=== PATIENT | female | born 1955 | race Caucasian/White ===

== ENCOUNTER 2017-09-01 11:34 | Emergency (ER) | payer OTHER ==
[2017-09-01 11:36] VITALS: BP 197/86; PULSE 68; RESP 14; TEMP 98.4; O2SAT 96
--- NOTE | 2017-09-01 12:00 | RADRPT ---
EXAM DATE/TIME: 09/01/2017 11:57 [place] COMPARISON: No previous studies available for comparison. INDICATIONS : Chest pain for 3 days. MEDICAL HISTORY : None. SURGICAL HISTORY : None. ENCOUNTER: Initial ACUITY: 3 days PAIN SCORE: 7/10 LOCATION: Bilateral lower chest FINDINGS: PA and lateral views of the chest demonstrate the lungs to be symmetrically aerated without evidence of mass, infiltrate or effusion. The cardiomediastinal contours are unremarkable. Osseous structure s are intact. CONCLUSION: No acute cardiopulmonary disease. Roger Watters MD on September 01, 2017 at 11:57 Board Certified Radiologist. This report was verified electronically.
[2017-09-01 12:22] LABS: BILIRUBIN, URINE NEG (NEG); BLOOD, URINE NEG (NEG); GLUCOSE,URINE NEG (NEG); KETONE, URINE NEG (NEG); MUCUS URINE MANY /lpf (OCC); NITRITE,URINE NEG (NEG); PH, URINE 5.5 (5.0-8.5); SQUAMOUS EPITHELIAL CELL URINE 2 /hpf (0-5); URINE COLOR YELLOW (YELLW/STRAW); URINE LEUKOCYTE ESTERASE MOD (NEG)
[2017-09-01 12:23] LABS: AUTOMATED NEUTROPHIL # 3.9 TH/MM3 (1.8-7.7); BASOPHIL % 0.7 % (0.0-2.0); EOSINOPHIL # 0.1 TH/MM3 (0-0.4); EOSINOPHIL % 2.3 % (0.0-4.0); HEMATOCRIT 41.5 % (35.0-46.0); HEMOGLOBIN 14.2 GM/DL (11.6-15.3); LYMPH % 28.5 % (9.0-44.0); LYMPHOCYTE # 1.8 TH/MM3 (1.0-4.8); MEAN CELL VOLUME 89.6 FL (80.0-100.0); MEAN CORPUSCULAR HEMOGLOBIN 30.8 PG (27.0-34.0); MEAN CORPUSCULAR HGB CONC 34.4 % (32.0-36.0); MEAN PLATELET VOLUME 8.5 FL (7.0-11.0); MONO % 6.4 % (0.0-8.0); MONOCYTE # 0.4 TH/MM3 (0-0.9); NEUT % 62.1 % (16.0-70.0); PLATELET COUNT 195 TH/MM3 (150-450); RED BLOOD COUNT 4.62 MIL/MM3 (4.00-5.30); RED CELL DISTRIBUTION WIDTH 13.7 % (11.6-17.2); WHITE BLOOD COUNT 6.2 TH/MM3 (4.0-11.0)
[2017-09-01 12:42] LABS: ALBUMIN 4.1 GM/DL (3.4-5.0); AST (GOT) 31 U/L (15-37); BICARBONATE 28.4 MEQ/L (21.0-32.0); BLOOD UREA NITROGEN 17 MG/DL (7-18); CHLORIDE 106 MEQ/L (98-107); CREATININE 0.73 MG/DL (0.50-1.00); GLOMERULAR FILTRATION RATE 81 ML/MIN (>89); GLUCOSE,RANDOM 97 MG/DL (74-106); SODIUM (NA) 140 MEQ/L (136-145)
[2017-09-01 12:45] LABS: ALKALINE PHOSPHATASE 70 U/L (45-117); ALT (GPT) 52 U/L (10-53); TOTAL BILIRUBIN ADULT 0.6 MG/DL (0.2-1.0); TOTAL PROTEIN 8.2 GM/DL (6.4-8.2)
[2017-09-01 12:53] VITALS: BP 135/67; PULSE 65; RESP 18; O2SAT 97
--- NOTE | 2017-09-01 13:09 | PD ---
HPI Chief Complaint: Abdominal Pain Time Seen by Provider: 12:36 Travel History International Travel<30 days: No Contact w/Intl Traveler<30days: No Traveled to known affect area: No History of Present Illness HPI Patient is a 62-year-old female recently moved to the area presents emergency department for evaluation of multiple complaints. She states that she hurts in her lungs, only when she takes a deep breath, she is also been having some upset stomach as well as some reflux, she states her having numbness and tingling in her fingers blurred vision as well as some numbness and tingling in her feet all of which been going on for a month. She called her insurance company and spoke to a nurse who advised him to come to the emergency department. She gives most of her history through a deputy court, she speaks some Faroese but she is certainly is more comfortable with [place]. She was offered a deputy court and she states that her son is doing just fine with it. She has not tried anything for her symptoms, denies any chest tightness nausea vomiting diabetes high blood pressure high cholesterol. She has not seen a doctor in some years [facility] Past Medical History Medical History: Denies Significant Hx Diminished Hearing: No ?: Not Past Surgical History Section: Yes Other Surgery: Yes (RIGHT FOOT SURGERY) Social History Alcohol Use: Yes ("SOMETIMES") Tobacco Use: No Substance Use: No Allergies-Medications (Allergen,Severity, Reaction): Coded Allergies: No Known Allergies (Unverified , 09/01/17) Reported Meds & Prescriptions Reported Meds & Active Scripts Active Omeprazole 40 Mg Cap 40 Mg PO DAILY Proctofoam Hc Rectal (Hydrocortisone/Pramoxine) 1-1% Foam 1 Applic RECTAL Q8H PRN Review of Systems Except as stated in HPI: all other systems reviewed are Neg Physical Exam Narrative GENERAL: Well-developed, obese in no obvious distress. SKIN: Focused skin assessment warm/dry. HEAD: Atraumatic. Normocephalic. EYES: Pupils equal and round. No scleral icterus. No injection or drainage. ENT: No nasal bleeding or discharge. Mucous membranes pink and moist. NECK: Trachea midline. No JVD. CARDIOVASCULAR: Regular rate and rhythm. No murmur appreciated. RESPIRATORY: No accessory muscle use. Clear to auscultation. Breath sounds equal bilaterally. GASTROINTESTINAL: Abdomen soft, non-tender, nondistended. Hepatic and splenic margins not palpable. MUSCULOSKELETAL: No obvious deformities. No clubbing. No cyanosis. No edema. NEUROLOGICAL: Awake and alert. No obvious cranial nerve deficits. Motor grossly within normal limits. Normal speech. PSYCHIATRIC: Appropriate mood and affect; insight and judgment normal. Data Data Last Documented VS Vital Signs Date Time Temp Pulse Resp B/P (MAP) Pulse Ox O2 Delivery O2 Flow Rate FiO2 09/01/17 15:45 09/01/17 12:53 65 18 97 Room Air 09/01/17 11:36 98.4 Orders Orders Complete Blood Count With Diff (09/01/17 11:43) Comprehensive Metabolic Panel (09/01/17 11:43) Lipase (09/01/17 11:43) Prothrombin Time / Inr (Pt) (09/01/17 11:43) Act Partial Throm Time (Ptt) (09/01/17 11:43) Urinalysis - C+S If Indicated (09/01/17 11:43) Electrocardiogram (09/01/17 11:43) Chest, Pa & Lat (09/01/17 ) Ed Discharge Order (09/01/17 14:21) Labs Laboratory Tests Test 09/01/17 12:00 09/01/17 12:15 White Blood Count 6.2 TH/MM3 Red Blood Count 4.62 MIL/MM3 Hemoglobin 14.2 GM/DL Hematocrit 41.5 % Mean Corpuscular Volume 89.6 FL Mean Corpuscular Hemoglobin 30.8 PG Mean Corpuscular Hemoglobin Concent 34.4 % Red Cell Distribution Width 13.7 % Platelet Count 195 TH/MM3 Mean Platelet Volume 8.5 FL Neutrophils (%) (Auto) 62.1 % Lymphocytes (%) (Auto) 28.5 % Monocytes (%) (Auto) 6.4 % Eosinophils (%) (Auto) 2.3 % Basophils (%) (Auto) 0.7 % Neutrophils # (Auto) 3.9 TH/MM3 Lymphocytes # (Auto) 1.8 TH/MM3 Monocytes # (Auto) 0.4 TH/MM3 Eosinophils # (Auto) 0.1 TH/MM3 Basophils # (Auto) 0.0 TH/MM3 CBC Comment DIFF FINAL Differential Comment Prothrombin Time 10.0 SEC Prothromb Time International Ratio 1.0 RATIO Activated Partial Thromboplast Time 23.4 SEC Blood Urea Nitrogen 17 MG/DL Creatinine 0.73 MG/DL Random Glucose 97 MG/DL Total Protein 8.2 GM/DL Albumin 4.1 GM/DL Calcium Level 9.0 MG/DL Alkaline Phosphatase 70 U/L Aspartate Amino Transf (AST/SGOT) 31 U/L Alanine Aminotransferase (ALT/SGPT) 52 U/L Total Bilirubin 0.6 MG/DL Sodium Level 140 MEQ/L Potassium Level 4.2 MEQ/L Chloride Level 106 MEQ/L Carbon Dioxide Level 28.4 MEQ/L Anion Gap 6 MEQ/L Estimat Glomerular Filtration Rate 81 ML/MIN Lipase 132 U/L Urine Color YELLOW Urine Turbidity CLEAR Urine pH 5.5 Urine Specific [place] 1.028 Urine Protein TRACE mg/dL Urine Glucose (UA) NEG mg/dL Urine Ketones NEG mg/dL Urine Occult Blood NEG Urine Nitrite NEG Urine Bilirubin NEG Urine Urobilinogen LESS THAN 2.0 MG/DL Urine Leukocyte Esterase MOD Urine RBC 1 /hpf Urine WBC 6 /hpf Urine Squamous Epithelial Cells 2 /hpf Urine Mucus MANY /lpf Microscopic Urinalysis Comment CULT NOT INDICATED MDM Medical Decision Making Medical Screen Exam Complete: Yes Emergency Medical Condition: Yes Differential Diagnosis Atypical chest pain, reflux, anxiety, electrolyte abnormality, acute medical emergency highly unlikely. Narrative Course Patient room to the emergency department, basic workup including EKG blood work is reassuring. On reassessment the patient is joking with her family and appears to be in no obvious distress. She has added 2 new complaints on my reassessment, she states she has a history of reflux and needs a prescription of omeprazole, she states she also has a history of hemorrhoids and needs something for that as well. Her symptoms are highly atypical for acute coronary syndrome, at this time I think she is stable for an outpatient workup, she is going to follow-up with her insurance company and her son states she thinks she can get into see somebody within the next week or 2. I discussed return to ED criteria. She is stable for discharge Diagnosis Primary Impression: Atypical chest pain Additional Impressions: Hand paresthesia Hemorrhoids Acid reflux Med/Other Pt SpecificInfo: Prescription(s) given Scripts Omeprazole (Omeprazole) 40 Mg Cap 40 MG PO DAILY, #30 CAP 0 Refills Prov: Jossue Tanner MD 09/01/17 Hydrocortisone-Pramoxine Rectal (Proctofoam Hc Rectal) 1-1% Foam 1 APPLIC RECTAL Q8H Y for ITCHING/INFLAMMATION, #1 CAN 0 Refills Prov: Jossue Tanner MD 09/01/17 Disposition: 01 DISCHARGE HOME Condition: Stable Jossue Tanner MD Sep 01, 2017 13:09
[2017-09-01] MEDS ORDERED: PROCHCT RECTAL (14:32)
[2017-09-01] MEDS ORDERED: OMEP40CA2 PO (14:32)
--- NOTE | 2017-09-02 08:03 | EKG ---
Date Performed: 09/01/2017 Time Performed: 12:42:29 PTAGE: 62 years EKG: SINUS BRADYCARDIA WITH SINUS ARRHYTHMIA RIGHT BUNDLE BRANCH BLOCK ABNORMAL ECG NO PREVIOUS TRACING DOCTOR: Daniela Barrios Interpretating Date/Time 09/02/2017 08:01:30
== END 2017-09-01 15:46 | disposition home or self-care (01) ==
LOC: NEPD 11:34
DX: R07.89 Other chest pain (principal); R20.2 Paresthesia of skin; K64.9 Unspecified hemorrhoids; K21.9 Gastro-esophageal reflux disease without esophagitis; R00.1 Bradycardia, unspecified; I49.8 Other specified cardiac arrhythmias; I45.10 Unspecified right bundle-branch block
CPT/HCPCS: 71046; 80053; 81001; 83690; 85025; 85610; 85730; 93005